=== PATIENT | male | born 1970 | race Caucasian/White ===

== ENCOUNTER 2017-02-12 18:36 | Emergency (ER) | payer OTHER ==
[~2017-02-12] VITALS: Ht 162.6 cm; Wt 74.2 kg
[2017-02-12 18:43] VITALS: BP 118/63
[2017-02-12] MEDS ORDERED: NEO-POLYMYXIN-H10 ML RIGHT EAR (20:24)
[2017-02-12] MEDS ORDERED: MOTRIN800 MG PO (20:24)
== END 2017-02-12 20:59 | disposition home or self-care (01) ==
LOC: EME 18:36
DX: H60.501 Unspecified acute noninfective otitis externa, right ear (principal); F17.200 Nicotine dependence, unspecified, uncomplicated
CPT/HCPCS: 99281; 99284